=== PATIENT | female | born 1980 | race Caucasian/White ===

== ENCOUNTER 2017-06-04 16:07 | Emergency (ER) | payer OTHER ==
[~2017-06-04] VITALS: Ht 157.5 cm; Wt 58.6 kg
[~2017-06-04 16:07] MED LIST: ALBU1AER9 INH; CALC500C3 PO; DOCU100C PO; PRENTAB26 PO
[2017-06-04 16:14] VITALS: Ht 157.5 cm; Wt 58.6 kg
[2017-06-04] MEDS ORDERED: EPP3/2 IM (16:28)
[2017-06-04] MEDS ORDERED: SODIUM CHLORIDE 0.9% 1000ML 1,000 ML IV ONE (17:00)
[2017-06-04] MEDS ORDERED: RANITAB33 PO (17:17)
[2017-06-04 17:20] VITALS: O2SAT 100
[2017-06-04 17:40] LABS: BASO % 0.4 %; BASO ABS # 0.03 K/uL (0-0.2); EOS % 1.5 %; HEMATOCRIT 39.3 % (37-47); HEMOGLOBIN 13.3 g/dL (12.0-16.0); IG# 0.01 K/uL (0.00-0.02); LYMPH % 20.8 %; LYMPH ABS # 1.39 K/uL (1.2-3.4); MEAN CELL VOLUME 87.5 fL (80-100); MEAN CORPUSCULAR HEMOGLOBIN 29.6 pg (25-34); MEAN CORPUSCULAR HGB CONC 33.8 g/dl (32-36); MEAN PLATELET VOLUME 12.1 fL (7.4-10.4); MONO % 4.8 %; MONO ABS # 0.32 K/uL (0.11-0.59); NEUT % 72.4 %; NEUT ABS # 4.84 K/uL (1.4-6.5); PLATELET COUNT 143 K/uL (130-400); RED CELL DISTRIBUTION WIDTH CV 14.4 % (11.5-14.5); RED CELL DISTRIBUTION WIDTH SD 46.2 fL (36.4-46.3); WHITE BLOOD COUNT 6.69 K/uL (4.8-10.8)
[2017-06-04 17:58] LABS: ALBUMIN 4.2 gm/dl (3.4-5.0); CALCIUM 9.2 mg/dl (8.5-10.1); CREATININE 0.77 mg/dl (0.60-1.20); POTASSIUM 3.7 mmol/L (3.5-5.1)
[2017-06-04] MEDS ORDERED: HYOS1TAB PO (18:03)
[2017-06-04] MEDS ORDERED: ATV5X PO (18:03)
[2017-06-04] MEDS ORDERED: ALBU18002 INH (18:03)
--- NOTE | 2017-06-04 18:04 | DIAGNOSTIC IMAGING REPORT ---
CHEST 2 VIEWS ROUTINE CLINICAL HISTORY: Left side chest pain pain COMPARISON STUDY: 05/10/2015 FINDINGS: The bones soft tissues and hemidiaphragms are normal. The cardiomediastinal silhouette is normal. The lungs are clear. The pulmonary vasculature is normal. Stable benign calcified granuloma left chest IMPRESSION: Negative chest. The above report was generated using voice recognition software. It may contain grammatical, syntax or spelling errors. Electronically signed by: Slava Solis M.D. 06/04/2017 6:02 PM Dictated Date/Time: 06/04/2017 6:02 PM
[2017-06-04 18:05] LABS: TOTAL PROTEIN 8.4 gm/dl (6.4-8.2)
[2017-06-04] MEDS ORDERED: ULT/50 PO (19:22)
[2017-06-04] MEDS ORDERED: ONDA4TAB10 SL (19:22)
[2017-06-04 19:43] VITALS: BP 92/68; PULSE 76; TEMP 36.2; O2SAT 100
--- NOTE | 2017-06-04 23:09 | EMERGENCY ROOM VISIT NOTE ---
History First contact with patient: 16:34 Chief Complaint: CHEST PAIN Stated Complaint: CHEST PAIN, BACK PAIN, LEFT SIDE SHOULDER Nursing Triage Summary: see triage note. apprears in nad. smisrinath, cooperative, vss. History of Present Illness The patient is a 37 year old female who presents to the Emergency Room with complaints of left-sided chest pain waxing and waning over the past several hours. The patient has a history of anxiety, and states that her symptoms began to worsen while she was in a workplace meeting today. She does have Ativan that she uses as needed, and used a dose of this without any improvement of her symptoms. The patient does not have fever or chills. The pain was described as a sharp stabbing pain initially with a maximal intensity of 9/10. This has improved and is currently a 3/10. The patient does not have recent travel history. She is not diabetic. The patient reports a past history of multiple abdominal surgeries including cholecystectomy, appendectomy, and 3 sections. She does not have a strong family history of sudden cardiac . Review of Systems More than 10 systems were reviewed and otherwise negative with the exception of history of present illness. Past Medical/Surgical History Medical Problems: (1) section (2) IBS (irritable bowel syndrome) Surgical Problems: (1) Hx of appendectomy Family History Hypertension Social History Smoking Status: Never Smoker Alcohol Use: none Drug Use: none Marital Status: Housing Status: lives with family Occupation Status: employed Current/Historical Medications Scheduled Ondasetron Odt (Zofran Odt), 4 MG SL Q6H Tramadol Hcl (Ultram), 50 MG PO Q8H Scheduled PRN Albuterol Sulfate (Proair Respiclick), 2 PUFFS INH QID PRN for SOB/Wheezing Calcium Carbonate (Tums), 500-1,000 MG PO UD PRN for Heartburn Docusate Sodium (Stool Softener), 100 MG PO DAILY PRN for Constipation Epinephrine (Epipen 2-Iron), 0.3 MG IM UD PRN for ALLERGIC REACTION Hyoscyamine Sulfate (Levsin), 0.125 MG PO Q4H PRN for Abdominal Cramping Lorazepam (Lorazepam), 0.5 MG PO Q8 PRN for Anxiety Ranitidine Hcl (Zantac), 75 MG PO BID PRN for Acid Reflux Physical Exam Vital Signs Date Time Temp Pulse Resp B/P (MAP) Pulse Ox O2 Delivery O2 Flow Rate FiO2 06/04/17 19:43 36.2 76 15 92/68 100 06/04/17 18:31 92/68 06/04/17 18:27 76 15 100 06/04/17 18:22 86 17 100 06/04/17 18:17 95 24 100 06/04/17 17:47 80 18 100 06/04/17 17:42 79 19 100 06/04/17 17:37 83 26 100 06/04/17 17:32 78 16 100 06/04/17 17:31 101/65 06/04/17 17:27 85 24 102/64 06/04/17 17:22 90 22 100 06/04/17 17:20 100 Room Air 06/04/17 17:20 100 Room Air 06/04/17 17:17 85 18 100 06/04/17 17:12 85 17 100 06/04/17 17:10 78 06/04/17 17:07 110/59 06/04/17 16:14 36.2 85 20 122/63 100 Room Air Physical Exam VITALS: Vitals are noted on the nurse's note and reviewed by myself. Vital signs stable. GENERAL: Well-developed, well-nourished, white female, who is in no acute distress and resting comfortably. Patient is cooperative with the examination. NECK: Supple without nuchal rigidity. No lymphadenopathy. No thyromegaly. Cervical spine is nontender. HEART: Regular rate and rhythm without murmurs gallops or rubs. LUNGS: Clear to auscultation bilaterally without wheezes, rales or rhonchi. No retractions or accessory muscle use. No tenderness along the anterior chest wall. ABDOMEN: Positive normal bowel sounds x 4. Soft with mild epigastric tenderness on palpation. No rebound or guarding. No lower abdominal tenderness. MUSCULOSKELETAL: No muscle atrophy, erythema, or edema noted. Full range of motion in all extremities. Medical Decision & Procedures ER Provider Diagnostic Interpretation: CHEST 2 VIEWS ROUTINE CLINICAL HISTORY: Left side chest pain pain COMPARISON STUDY: 05/10/2015 FINDINGS: The bones soft tissues and hemidiaphragms are normal. The cardiomediastinal silhouette is normal. The lungs are clear. The pulmonary vasculature is normal. Stable benign calcified granuloma left chest IMPRESSION: Negative chest. Laboratory Results 06/04/17 17:20 Red Blood Count 4.49, Mean Corpuscular Volume 87.5, Mean Corpuscular Hemoglobin 29.6, Mean Corpuscular Hemoglobin Concent 33.8, Mean Platelet Volume 12.1, Neutrophils (%) (Auto) 72.4, Lymphocytes (%) (Auto) 20.8, Monocytes (%) (Auto) 4.8, Eosinophils (%) (Auto) 1.5, Basophils (%) (Auto) 0.4, Neutrophils # (Auto) 4.84, Lymphocytes # (Auto) 1.39, Monocytes # (Auto) 0.32, Eosinophils # (Auto) 0.10, Basophils # (Auto) 0.03 06/04/17 17:20 Test 06/04/17 17:18 06/04/17 17:20 06/04/17 17:30 Urine Color YELLOW Urine Appearance CLEAR (CLEAR) Urine pH 6.0 (4.5-7.5) Urine Specific [place] 1.008 (1.000-1.030) Urine Protein NEG (NEG) Urine Glucose (UA) NEG (NEG) Urine Ketones NEG (NEG) Urine Occult Blood NEG (NEG) Urine Nitrite NEG (NEG) Urine Bilirubin NEG (NEG) Urine Urobilinogen NEG (NEG) Urine Leukocyte Esterase NEG (NEG) White Blood Count 6.69 K/uL (4.8-10.8) Red Blood Count 4.49 M/uL (4.2-5.4) Hemoglobin 13.3 g/dL (12.0-16.0) Hematocrit 39.3 % (37-47) Mean Corpuscular Volume 87.5 fL (80-100) Mean Corpuscular Hemoglobin 29.6 pg (25-34) Mean Corpuscular Hemoglobin Concent 33.8 g/dl (32-36) Platelet Count 143 K/uL (130-400) Mean Platelet Volume 12.1 fL (7.4-10.4) Neutrophils (%) (Auto) 72.4 % Lymphocytes (%) (Auto) 20.8 % Monocytes (%) (Auto) 4.8 % Eosinophils (%) (Auto) 1.5 % Basophils (%) (Auto) 0.4 % Neutrophils # (Auto) 4.84 K/uL (1.4-6.5) Lymphocytes # (Auto) 1.39 K/uL (1.2-3.4) Monocytes # (Auto) 0.32 K/uL (0.11-0.59) Eosinophils # (Auto) 0.10 K/uL (0-0.5) Basophils # (Auto) 0.03 K/uL (0-0.2) RDW Standard Deviation 46.2 fL (36.4-46.3) RDW Coefficient of Variation 14.4 % (11.5-14.5) Immature Granulocyte % (Auto) 0.1 % Immature Granulocyte # (Auto) 0.01 K/uL (0.00-0.02) Anion Gap 8.0 mmol/L (3-11) Est Creatinine Clear Calc Drug Dose 80.7 ml/min Estimated GFR () 115.9 Estimated GFR (Non- 100.0 BUN/Creatinine Ratio 18.0 (10-20) Calcium Level 9.2 mg/dl (8.5-10.1) Magnesium Level 2.2 mg/dl (1.8-2.4) Total Bilirubin 0.3 mg/dl (0.2-1) Aspartate Amino Transf (AST/SGOT) 17 U/L (15-37) Alanine Aminotransferase (ALT/SGPT) 26 U/L (12-78) Alkaline Phosphatase 76 U/L (45-117) Total Protein 8.4 gm/dl (6.4-8.2) Albumin 4.2 gm/dl (3.4-5.0) Globulin 4.2 gm/dl (2.5-4.0) Albumin/Globulin Ratio 1.0 (0.9-2) Amylase Level 37 U/L (25-115) Lipase 596 U/L (73-393) Thyroid Stimulating Hormone (TSH) 1.480 uIu/ml (0.300-4.500) Bedside D-Dimer 126 ng/mlFEU (0-450) Bedside Troponin I < 0.030 ng/ml (0-0.045) Medications Administered Medications (Trade) Dose Ordered Sig/Kia Route Start Time Stop Time Status Last Admin Dose Admin Sodium Chloride 1,000 ml @ 999 mls/hr Q1H1M ONCE IV 06/04/17 17:00 06/04/17 18:00 DC 06/04/17 17:30 999 MLS/HR ECG Per My Interpretation Change: Normal sinus rhythm with sinus arrhythmia @83 bpm Normal ECG When compared with ECG of 24-MAY-2014 23:29, No significant change was found ED Course Physical exam and history were performed. Nursing notes, EMR, and Medication List were personally reviewed. Patient appears to have left-sided chest pain off and on for the past several hours. On examination the patient appears comfortable, although she did take Ativan about 1 hour ago. EKG was performed and is as above. She was placed on cardiac cath technologist. IV access was established and labs are obtained. The patient was hydrated with normal saline. I did offer her pain medication, but she declined. The patient's blood work is as above and was reviewed. She does not have a significantly elevated white blood cell count, gross anemia, bandemia, or significant electrolyte imbalance. Transaminases are not diagnostic. Troponin 1 as well as d-dimer 1 are both negative. She remained in normal sinus rhythm while on the cardiac cath technologist. The patient's lipase is elevated at just under 600, although her amylase is normal. On reevaluation the patient was very comfortable and was able to watch TV without difficulty here in the ER. Her abdomen continues without significant tenderness, and she states that her chest pain has improved. I discussed options of care with the patient, and she does feel comfortable with discharge home. The patient may have a mild pancreatitis causing her discomfort, or this could be related to her anxiety as she did take some Ativan just prior to arrival. Overall the patient needs to have close follow-up with her primary care physician in the next 1-2 days. I will give her a short course of Zofran and tramadol. She is to concentrate on drinking fluids. She was otherwise invited back to the ER with any new, worsening, or concerning symptoms. The chart was completed utilizing [employer] Speech Voice Recognition Software. Grammatical errors, random word insertions, pronoun errors, and incomplete sentences are an occasional consequence of this system due to software limitations, ambient noise, and hardware issues. Any formal questions or concerns about the content, text, or information contained within the body of this dictation should be directly addressed to the provider for clarification. . Medical Decision Differential diagnosis includes, but is not limited to: Myocardial infarction, dysrhythmia, pericarditis, pneumothorax, aortic aneurysm/dissection, DVT/PE, anxiety, GERD, PUD, electrolyte imbalance, thyroid disorder, pneumonia, bronchitis, pancreatitis, and others Impression Primary Impression: Left sided chest pain Additional Impression: Elevated lipase Departure Information Dispostion Home / Self-Care Condition GOOD Prescriptions Ondasetron Odt (ZOFRAN ODT) 4 Mg Tab 4 MG SL Q6H for Nausea, #12 TAB Prov: Juan Diaz PA-C 06/04/17 Tramadol Hcl (ULTRAM) 50 Mg Tab 50 MG PO Q8H for 3 Days, #9 TAB Prov: Juan Diaz PA-C 06/04/17 Forms Call Back Authorization, HOME CARE DOCUMENTATION FORM, Work Instructions, Additional Instructions: Patient was seen and evaluated today in the emergency department fo medical care. Return to work on 06/07/2017. Please excuse. IMPORTANT VISIT INFORMATION Patient Instructions My [facility] Additional Instructions You were seen and evaluated today on an emergency basis only. This is not a substitute for, or an effort to provide, complete comprehensive medical care. It is not possible to recognize and treat all injuries or illnesses in a single emergency department visit. For this reason it is recommended that you followup with your primary care physician for ongoing care and evaluation. Take tramadol 50 mg every 8 hours as needed for breakthrough pain. Zofran 4 mg ODT: Dissolve 1 tablet every 6 hrs as needed for nausea. Drink plenty fluids and remain well-hydrated You are welcome to return to the emergency department anytime with new, worsening, or concerning symptoms. Work Instructions Additional Work Instructions: Patient was seen and evaluated today in the emergency department for medical care. Return to work on 06/07/2017. Please excuse. Problem Qualifiers
== END 2017-06-04 19:43 | disposition home or self-care (01) ==
LOC: C.EDB 16:09
DX: R07.89 Other chest pain (principal); R10.816 Epigastric abdominal tenderness; R74.8 Abnormal levels of other serum enzymes; K58.9 Irritable bowel syndrome, unspecified; Z90.49 Acquired absence of other specified parts of digestive tract; Z82.49 Family history of ischemic heart disease and other diseases of the circulatory system